=== PATIENT | female | born 1995 | race Hispanic/Latino ===

== ENCOUNTER 2020-12-12 02:41 | Inpatient (IN) | payer OTHER, SELFPAY ==
[2020-12-12] VITALS (178 sets, daily range): BP systolic 91–151; BP diastolic 46–131; PULSE 66–180; RESP 16–20; TEMP 36.1–36.9; O2SAT 98–100; BMI 38.3
[2020-12-12 03:32] LABS: Basophils Percent Auto 0.2 % (0.2-1.2); Eosinophils Percent Auto 0.4 % (0-4.4); Hematocrit 31.8 % (37.0-47.0); Hemoglobin 9.8 g/dL (12.0-15.0); Immature Granulocyte Absolute 0.04 K/mm3 (0.00-0.031); Immature Granulocyte Percent A 0.4 % (0-0.5); Immature Platelet Fraction Pct 23.9 % (0.9-11.2); Lymphocytes Absolute Auto 2.52 K/mm3 (0.9-3.2); Lymphocytes Percent Auto 26.4 % (18.3-44.2); Mean Corpuscular HGB Conc 30.8 g/dl (32-36); Mean Corpuscular Hemoglobin 22.1 pg (26-34); Mean Corpuscular Volume 71.6 fl (80-100); Monocytes Absolute Auto 0.6 K/mm3 (0.1-0.6); Monocytes Percent Auto 6.6 % (2.6-8.5); Neutrophils Absolute Auto 6.3 K/mm3 (1.3-6.7); Platelet Count Result 211 k/mm3 (150-375); Red Blood Count 4.44 M/mm3 (4.2-5.4); Red Cell Distribution Width 15.5 % (11.5-14.5); White Blood Count 9.6 K/mm3 (4.5-10.0)
[2020-12-12] MEDS: LACTATED RINGERS 1,000 ML 125 ML IV CONT ×2 (03:36→04:11)
--- NOTE | 2020-12-12 03:41 | LDADM ---
This patient, Nicole Thompson, was admitted to Labor/Delivery/Recovery 106 on 12/12/20 at 02:41. Plans for labor, pain management and were discussed with patient. Patient/family oriented to hospital policies and general routines including ID bracelet, bed and alarms, visiting hours, pain management, procedures, bathroom and other care routines, personal items, smoking policy, room service/diet and guest tray routines, security routines, and visiting hours. Patient/Family are encouraged to report perceived risks to care and to ask questions if they do not understand what they are told or what they should do. See OBIX for further documentation.
--- NOTE | 2020-12-12 04:12 | WPDANESEPPF ---
Anes - Initial Pre Proc Eval Procedure: labor epidural Date/Time: 12/12/20 04:12 Surgeon: Mitra Archuleta MD Pre Op Diagnosis: labor pain Pre Op Diagnosis: Contractions Patient Data Age: 25 Gender: F Height: 1.55 m Weight: 92 kg Last Vital Signs Temp 36.2 C L 12/12/20 03:30 Pulse 78 12/12/20 04:10 BP 125/63 12/12/20 04:10 Pulse Ox 99 12/12/20 04:09 Allergies Allergy/AdvReac Type Severity Reaction Status Date / Time No Known Allergies Allergy Verified 11/23/20 15:41 Home Medications Medication Instructions Recorded Confirmed Type prenat.vits,elyse,ffl-ynej-zkhra 1 tablet PO HS 11/23/20 11/23/20 History [ #2] Laboratory Tests 12/12/20 12/12/20 03:19 03:19 WBC 9.6 K/mm3 K/mm3 (4.5-10.0) RBC 4.44 M/mm3 M/mm3 (4.2-5.4) Hgb 9.8 g/dL L g/dL (12.0-15.0) Hct 31.8 % L % (37.0-47.0) MCV 71.6 fl L fl (80-100) MCH 22.1 pg L pg (26-34) MCHC 30.8 g/dl L g/dl (32-36) RDW 15.5 % H % (11.5-14.5) Plt Count 211 k/mm3 k/mm3 (150-375) MPV TNP Immature Gran % (Auto) 0.4 % % (0-0.5) Neut % (Auto) 66.0 % % (45.5-73.1) Lymph % (Auto) 26.4 % % (18.3-44.2) [place] % (Auto) 6.6 % % (2.6-8.5) Eos % (Auto) 0.4 % % (0-4.4) Baso % (Auto) 0.2 % % (0.2-1.2) Lymph # (Auto) 2.52 K/mm3 K/mm3 (0.9-3.2) [place] # (Auto) 0.6 K/mm3 K/mm3 (0.1-0.6) Eos # (Auto) 0.0 K/mm3 K/mm3 (0-0.3) Baso # (Auto) 0.0 K/mm3 K/mm3 (0.0-0.1) Abs Immat Gran (auto) 0.04 K/mm3 H K/mm3 (0.00-0.031) Absolute Neuts (auto) 6.3 K/mm3 K/mm3 (1.3-6.7) Absolute Nucleated RBC 0.0 K/mm3 K/mm3 (0.0-0.012) Nucleated RBC % 0.0 % % (0.0-0.2) % Immature Plt Fraction 23.9 % H % (0.9-11.2) RPR Pending Patient hx anesthesia problems: none Family hx anesthesia problems: none PMFSH Family History Family History Father Diabetes mellitus Hypertension Social History Social History Smoking status: Never smoker Second hand tobacco smoke exposure: No Substance use: never Spiritual care concerns: No Anes - Eval Final PreProcedure Day of Procedure 12/12/20 04:12 Patient weight: obese ASA classification: II Anesthesia type and monitoring: regional epidural Informed Consent: The patient's anesthetic plan and its attendant risks and benefits were discussed with the patient/family/POA. Questions were solicited and answers provided to the satisfaction of the patient/family/POA.
[2020-12-12 07:18] LABS: Rapid Plasma Reagin Non-Reactive (NonReactive)
--- NOTE | 2020-12-12 07:43 | WPDOBADMIT ---
Obstetrics - Admit Note Admission Note: 25 y/o here in active labor. record reviewed. No pertinent additions to the history and/or any subsequent changes in the physical findings that are not consistent with the expected course of the were found. Additions to the history and/or subsequent changes in the physical findings follow. None.
--- NOTE | 2020-12-12 11:30 | P.PCNOB_ITS ---
OB - Delivery Note Procedure Delivery date: 12/12/20 Intrapartal events: None Induction method: none Delivery monitor: external FHT, external uterine and internal uterine Route of delivery: [place] Baby Date of : 12/12/20 Time of : 11:13 Weeks of gestation at delivery: 40 gender: Female Weight (pounds): 6 Weight (ounces): 6 presentation: vertex position: Left Occiput Anterior Placenta delivery description: Spontaneous cord vessel description: Nuchal Cord, Loose and Reduced score one minute: 9 score five minutes: 9 Narrative: Delivery per ZLucero CARDENAS. Cord gasses collected and handed off to staff. Mother and baby in stable condition.
[2020-12-12] MEDS: OXYTOCIN 30 UNITS/NS 500 ML 30 UNITS/500 ML BAG 125 UNITS IV CONT (11:49)
[2020-12-12] MEDS: IBUPROFEN 600 MG TABLET PO (13:05)
[2020-12-12] MEDS: WITCH HAZEL 40 PADS 1 PAD TOPICAL (13:06)
[2020-12-12] MEDS: BENZOCAINE 20% AER SPR (*SP) 56 GM CAN 1 SPRAY TOPICAL (13:06)
--- NOTE | 2020-12-12 14:30 | PC.NURSE ---
Patient transferred to post room #279 per wheelchair from labor and delivery. Support person present. Oriented to unit, room, information board, rooming in, admission packet and security measures. Patient verbalizes understanding.
--- NOTE | 2020-12-12 15:20 | PC.NURSE ---
Mother called out for assist with feeding. Consulted with patient, mother reports has fed well first feeding. Reviewed feeding cues, frequencies, duration of feedings, feeding elimination flow sheet, and signs of adequate intake. Demonstrated stimulation techniques to wake for feeding. Assisted with infant to breast. Reviewed positioning/alignment in cross cradle, holding breast in U hold and guided asymmetrical latch on. Mother's nipple tends to draw in when holding breast in U hold. Suggested to roll slightly and to hold breast behind areola. Infant was able to latch within a few attempts. nursed eagerly, with steady draws and frequent swallowing noted. Reviewed signs of a correct latch, effective nursing and suck swallow ratio. Infant was able to maintain latch. Demonstrated how to adjust latch more deeply while feeding. Mother quickly reports she can feel infant is latched more deeply and has minimal tenderness. Suggested to stimulate infant while feeding to keep awake and nursing effectively for increased stimulation and increased intake. Instructed mother to call out for RN assistance if she is unable to latch for feeding or she has discomfort with nursing.
[2020-12-12] MEDS: POLYSACCHARIDE IRON COMPLEX 150 MG CAPSULE PO (17:07)
[2020-12-13] MEDS: IBUPROFEN 600 MG TABLET PO (03:30)
[2020-12-13 03:43] LABS: Hematocrit 30.7 % (37.0-47.0); Hemoglobin 9.3 g/dL (12.0-15.0)
[2020-12-13 08:10] VITALS: BP 117/67; PULSE 70; RESP 18; TEMP 36.3; O2SAT 98
[2020-12-13] MEDS: ACETAMINOPHEN 325 MG TABLET 650 MG PO (08:23)
[2020-12-13] MEDS: DOCUSATE SODIUM 100 MG CAPSULE PO (08:23)
[2020-12-13] MEDS: POLYSACCHARIDE IRON COMPLEX 150 MG CAPSULE PO (08:23)
[2020-12-13] MEDS: MULTIVIT/MIN/PREN/FOL AC/IRON TABLET 1 TAB PO (08:23)
--- NOTE | 2020-12-13 08:28 | P.PNOB_ITS ---
OB - PN: Subj Subjective Date/time seen: 12/13/20 08:28 Patient comments: no complaints baby status: doing well OB - PN: Obj Data Labs CBC & Chem 7: 12/13/20 03:35 Labs: Laboratory Results - last 24 hr 12/13/20 03:35 Hgb 9.3 L Hct 30.7 L OB - PN A/P Plan day: 1 Plan: routine care and discharge home Comments: RTC in 4 weeks Time Spent With Patient Time: Total time spent is greater than 50% in coordination of care (as docu mented) at patient's floor/unit and/or counseling patient: Time with patient: less than 15 minutes Review of Systems Review of Systems: All systems reviewed & are unremarkable except as noted in HPI and below Exam Narrative: Exam Narrative: Fundus firm and vaginal flow controlled. No lower ext redness, warmth, or edema. Negative homans. Const: General: comfortable Chest: Breast/axilla inspection: normal inspection of the breasts Resp: Effort & Inspection: normal respiratory effort Cardio: Rate: regular rate GI: GI Palp: Yes Soft to palpation Psych: Appearance: grossly normal Affect: normal affect Attitude: cooperative Thought content: Yes Normal thought content present Judgement: Good judgement present (Psych)
--- NOTE | 2020-12-13 10:14 | WPDANLDPN2 ---
Anes-Prog Note L&D Date/Time: 12/13/20 10:14 Comfortable throughout: labor and delivery Neuraxial method: epidural Epidural/Spinal procedure site: clean & non-tender Neuro status: Neuro function grossly intact. Cardiovascular status: normal Respiratory status: normal Airway patency: baseline Mental status: baseline Post-Op hydration status: normal Vital Signs: Last Vital Signs Temp 36.3 C L 12/13/20 08:10 Pulse 70 12/13/20 08:10 Resp 18 12/13/20 08:10 BP 117/67 12/13/20 08:10 Pulse Ox 98 12/13/20 08:10 Pain score (VAS): 0 I/O: Intake & Output 12/12/20 12/13/20 12/13/20 23:59 07:59 15:59 Intake Total 500 Balance 500 Post-procedural complaints: none Patient feedback: Patient satisfied with anesthetic care.
[2020-12-16 10:28] VITALS: BP 138/71; PULSE 81; RESP 20; TEMP 37; O2SAT 98
--- NOTE | 2021-01-03 07:45 | P.DS_ITS ---
DS: Admitting Diagnosis Admitting Diagnosis Admitting Diagnosis: Labor DS: Discharge Diagnosis Discharge Diagnosis (1) Vaginal delivery: Code(s): O80 - Encounter for full-term uncomplicated delivery Status: Acute OB - DS: Summary OB Procedures : None OB Procedures Intrapartum: Spontaneous Vag Delivery OB Procedures: : None Time Spent with Patient Time attestation: Total time spent providing and/or coordinating discharge services: Discharge Plan Discharge Attending physician on discharge: Liz Poon Consulting providers: Liz Poon ; Marco Welch Discharging Clinician: Liz Poon Patient Disposition: Home, Self-Care Activity: pelvic rest Diet: as tolerated Discharge Instructions: Education: Mom and Baby Guide and Preeclampsia Handout Given to: Mother Follow-Up: Call your delivering provider's office for an appointment to be seen in: 6 Weeks Mom and baby should come [facility] the [facility] for the follow-up appointment. Appointment Date/Time: December 16, 2020 at 10:00 am What to expect at your follow-up visit: Physical Assessment Call [phone] if you are unable to keep your appointment time. BREAST CARE: * Wear a snug supportive bra. * For engorgement discomfort: Breast Feeding: * Apply warm moist washcloths * Express milk as needed to relieve engorgement * Wear loose clothing * For sore nipples: * Identify correct latch-on * Apply warm moist washcloths before and after nursing * Air dry nipples after nursing * May apply Lansinoh cream to nipples EPISIOTOMY/PERINEAL CARE: * Until bleeding stops, use your yajaira bottle after urinating * Change your pad frequently throughout the day * You may take sitz baths several times a day (fill your bathtub with warm water and soak for 20 minutes.) Do NOT bathe in the water * No tub baths until seen by your physician - You may shower ACTIVITY: * Rest as much as possible. * Do not exercise or lift anything heavier than your baby (such as laundry or other children.) * Avoid stairs or driving as much as possible. * Do not put anything into the vagina. No douching, tampons, or sexual activity until seen by physician. NOTIFY PHYSICIAN IF YOU HAVE ANY QUESTIONS OR IF ANY OF THE FOLLOWING SYMPTOMS OCCUR: * If your perineum becomes red, swollen, or more painful than what you have experienced in the hospital. * If your vaginal bleeding becomes foul smelling. * If your vaginal bleeding becomes more heavy than a period or if your bleeding changes from pink to bright red. However, you may pass an occasional walnut- sized clot once or twice for the first week . * If you experience a sharp, shooting pain in you calves. * If you discover a hard, reddened area on your breast or if you experience flu- like symptoms. DIET: * Eat regular, well-balanced meals. * Drink plenty of fluids daily. If , drink to thirst. Stand Alone Forms: General Discharge Information Follow-up/Referrals: Liz Poon CNM [Certified Nurse [facility]] - Discharge Medications: Continued prenat.vits,elyse,[id number] Tablet 1 tablet PO HS RF: 0 Date of admission: 12/12/20 02:41 Primary Care Provider: MakaylaJennifer Admitting Provider: Mitra Archuleta Attending physician on admission: Mitra Archuleta Condition: Stable
== END 2020-12-13 18:30 | disposition home or self-care (01) | DRG 560 ==
LOC: ANHLDR 03:15 → ANHOB2 14:53
PROVIDERS: Advanced Practice Midwife; Admitting Provider Obstetrics & Gynecology; PCP Registered Nurse; Visit Provider Obstetrics & Gynecology
DX: O69.81X0 Labor and delivery complicated by cord around neck, without compression, not applicable or unspecified (principal); O36.5930 Maternal care for other known or suspected poor fetal growth, third trimester, not applicable or unspecified; O76 Abnormality in fetal heart rate and rhythm complicating labor and delivery; Z3A.40 40 weeks gestation of pregnancy; Z37.0 Single live birth
CPT/HCPCS: 36415; 85014; 85018; 85025; 85055; 86592; 86850; 86900; 86901; A9270; J2590; J2795; J7120

== ENCOUNTER 2022-01-06 18:38 | Emergency (ER) | payer OTHER, SELFPAY ==
--- NOTE | ~2022-01-06 | CT_ITS ---
EXAMINATION: CT abdomen pelvis w con DATE: 01/06/2022 19:32 INDICATION: r/o carole TECHNIQUE: Computed tomography (CT) of the abdomen and pelvis was performed with 100 mL Omnipaque-350 intravenous contrast. The dose-length product was 919.63 mGy-cm. COMPARISON: None FINDINGS: Lower thorax: Unremarkable. Liver: Normal. Biliary/Gallbladder: Gallbladder is normal. No bile duct dilation. No CT evidence of cholelithiasis. Spleen: Normal. Pancreas: No mass or duct dilation. Adrenals:No mass. Kidneys: No mass, stone, or hydronephrosis. GI tract: No small or large bowel dilation. Normal appendix. Mesentery/Peritoneum: No ascites, mass, or free air. Retroperitoneum: No mass. Pelvis: Pelvic organs are within normal limits. Bones/Soft Tissues: Soft tissues and body wall unremarkable. Additional Findings: None. IMPRESSION: No acute abdominopelvic process. Reviewed, dictated and finalized at location K.
[2022-01-06 18:38] VITALS: BP 127/74; PULSE 78; RESP 16; TEMP 36.7; O2SAT 100
[2022-01-06 18:55] LABS: Basophils Percent Auto 0.2 % (0.2-1.2); Eosinophils Percent Auto 0.4 % (0-4.4); Hematocrit 41.2 % (37.0-47.0); Hemoglobin 12.9 g/dL (12.0-15.0); Immature Granulocyte Absolute 0.03 K/mm3 (0.00-0.031); Immature Granulocyte Percent A 0.3 % (0-0.5); Lymphocytes Absolute Auto 2.01 K/mm3 (0.9-3.2); Lymphocytes Percent Auto 19.9 % (18.3-44.2); Mean Corpuscular HGB Conc 31.3 g/dl (32-36); Mean Corpuscular Hemoglobin 25.9 pg (26-34); Mean Corpuscular Volume 82.7 fl (80-100); Mean Platelet Volume 12.2 fl (7.4-10.4); Monocytes Absolute Auto 0.5 K/mm3 (0.1-0.6); Monocytes Percent Auto 4.7 % (2.6-8.5); Neutrophils Absolute Auto 7.5 K/mm3 (1.3-6.7); Neutrophils Percent Auto 74.5 % (45.5-73.1); Platelet Count Result 222 k/mm3 (150-375); Red Blood Count 4.98 M/mm3 (4.2-5.4); Red Cell Distribution Width 14.6 % (11.5-14.5); White Blood Count 10.1 K/mm3 (4.5-10.0)
[2022-01-06 19:04] LABS: Alanine Aminotransferase 16 U/L (4-35); Albumin Level 4.5 g/dL (3.5-5.1); Alkaline Phosphatase 118 U/L (38-126); Anion Gap 8 mmol/L (8-16); Aspartate Amino Transferase 23 U/L (14-36); Bilirubin,Total 1.1 mg/dL (0.2-1.3); Blood Urea Nitrogen 12 mg/dL (7-17); Calcium 8.7 mg/dL (8.4-10.2); Carbon Dioxide 23 mmol/L (22-30); Chloride 107 mmol/L (98-107); Estimated CRCL calculation 113 ml/min; Estimated Glomerular Filt Rate > 60; Glucose 109 mg/dL (65-110); Lipase 138 U/L (23-300); Potassium 3.6 mmol/L (3.4-5.0); Sodium 138 mmol/L (137-145)
--- NOTE | 2022-01-06 19:10 | ED.ABDPAIN ---
HPI - Abdominal Pain General Chief Complaint: Abdominal Pain Stated Complaint: abd pain Time Seen by Provider: 01/06/22 19:06 History of Present Illness HPI narrative: 18-year-old female presents to the emergency room for evaluation of a right upper quadrant pain. Patient states the pain has been present for since before lunchtime around 11:00 today. Patient states the pain is sharp and radiates in through to her back. Patient denies ever having the similar symptoms. Patient denies nausea vomiting, diarrhea, constipation, fever. Patient denies any abdominal surgeries. Related Data Allergies Allergy/AdvReac Type Severity Reaction Status Date / Time No Known Allergies Allergy Verified 01/06/22 18:40 Review of Systems Review of Systems: CONSTITUTIONAL: Denies fever, chills, or sweats. EYES: Denies visual changes, redness, or discharge. ENT: Denies rhinorrhea, congestion, sore throat, or otalgia. CARDIOVASCULAR: Denies chest pain, palpitations, or edema. RESPIRATORY: Denies cough or dyspnea. GASTROINTESTINAL: Reports abdominal pain GENITOURINARY: Denies dysuria or hematuria. SKIN: Denies rash or itching. MUSCULOSKELETAL: Denies back pain, joint pain, or myalgia. NEUROLOGIC: Denies headache, numbness, dizziness, or weakness. PSYCHIATRIC: Denies anxiety or depression. [facility] Family History Family History Father Diabetes mellitus Hypertension Social History Social History Smoking status: Never smoker Second hand tobacco smoke exposure: No Substance use: never Spiritual care concerns: No Exam Narrative: GENERAL: Well-appearing, well-nourished, and in no acute distress. HEAD: Normocephalic, atraumatic. EYES: PERRLA and EOMI. CHEST: Clear to auscultation. No respiratory distress. No wheezes rales or rhonchi HEART: Regular rate and rhythm. No murmur heard. Normal peripheral pulses. ABDOMEN: Soft, right upper quadrant and epigastric tenderness, nondistended, normal active bowel sounds. EXTREMITIES: Normal range of motion. No edema. SKIN: Warm, dry, no rash. NEURO: No focal deficits. Alert and oriented x3. PSYCH: Normal mood and affect. Course Vital Signs Vital signs: Vital Signs Temperature 36.7 C 01/06/22 18:38 Pulse Rate 78 01/06/22 18:38 Respiratory Rate 16 01/06/22 18:38 Blood Pressure 127/74 01/06/22 18:38 Pulse Oximetry 100 01/06/22 18:38 Temperature 36.7 C 01/06/22 18:38 Pulse Rate 78 01/06/22 18:38 Respiratory Rate 16 01/06/22 18:38 Blood Pressure 127/74 01/06/22 18:38 Pulse Oximetry 100 01/06/22 18:38 MDM - Abdominal Pain MDM Narrative Medical decision making narrative: 18-year-old female presents emergency room for evaluation of a cute onset of abdominal pain. Patient states that the pain was constant and sharp in nature. Patient denies any nausea, vomiting, diarrhea or constipation. She also denied fever. CBC and CMP were unremarkable. Urine showed no signs of infection. CT scan showed no acute intra-abdominal abnormality. Differential Diagnosis Differential diagnosis: Likely abdominal pain Lab Data Attestation: I reviewed the patient's lab results. Result diagrams: 01/06/22 18:50 01/06/22 18:50 Labs: Lab Results 01/06/22 01/06/22 01/06/22 Range/Units 18:50 18:50 18:56 WBC 10.1 H (4.5-10.0) K/mm3 RBC 4.98 (4.2-5.4) M/mm3 Hgb 12.9 D (12.0-15.0) g/dL Hct 41.2 (37.0-47.0) % MCV 82.7 (80-100) fl MCH 25.9 L (26-34) pg MCHC 31.3 L (32-36) g/dl RDW 14.6 H (11.5-14.5) % Plt Count 222 (150-375) k/mm3 MPV 12.2 H (7.4-10.4) fl Immature Gran % (Auto) 0.3 (0-0.5) % Neut % (Auto) 74.5 H (45.5-73.1) % Lymph % (Auto) 19.9 (18.3-44.2) % [place] % (Auto) 4.7 (2.6-8.5) % Eos % (Auto) 0.4 (0-4.4) % Baso % (Auto) 0.2 (0.2-1.2) % Lymph # (Auto)
[2022-01-06] MEDS: PANTOPRAZOLE SODIUM IV 40 MG VIAL IV PUSH (19:15)
[2022-01-06] MEDS: BELLADONNA ALK/PHENOB ELIX 10 ML, MAG HYDROX/ALUMINUM HYD/SIMETH 30 ML, LIDOCAINE HCL 2... PO (19:15)
[2022-01-06 19:22] LABS: Add Urine Microscopic? YES; Appearance Urine Clear (Clear); Bilirubin Urine Negative (Negative); Blood Urine Negative (Negative); Color Urine Yellow (Yellow); Glucose Urine UA Negative (Negative); Ketones Urine 1+ mg/dL (Negative); Leukocyte Esterase Ur Negative LEU/UL (Negative); Mucus Urine Few /lpf; Nitrate Urine Negative (Negative); Protein Urine Negative (Negative); RBC Urine 0-2 /hpf (0-2); Specific Grav Ur 1.024 (1.001-1.035); Squamous Epithelial Cell Urine Occasional /hpf (Few); WBC Urine 0-3 /hpf
[2022-01-06 20:22] VITALS: BP 121/68; PULSE 70; RESP 16; O2SAT 98
== END 2022-01-06 20:23 | disposition home or self-care (01) ==
PROVIDERS: Emergency Medicine; Emergency Provider Nurse Practitioner Family; PCP Registered Nurse
DX: K21.9 Gastro-esophageal reflux disease without esophagitis (principal)
CPT/HCPCS: 36415; 74177; 80053; 81001; 81025; 83690; 85025; 96374; 99284; A9270; C9113; Q9967

== ENCOUNTER 2022-06-18 15:07 | Emergency (ER) | payer OTHER, SELFPAY ==
[2022-06-18 15:16] VITALS: BP 125/73; PULSE 90; RESP 15; TEMP 36.3; O2SAT 99
--- NOTE | 2022-06-18 15:58 | ECG_ITS ---
Measurements Intervals [place] Rate: 72 P: 44 AR: 149 QRS: 63 QRSD: 90 T: 35 QT: 378 QTc: 415 Interpretive Statements SINUS RHYTHM POSSIBLE LEFT ATRIAL ENLARGEMENT [-0.1mV P-WAVE IN V1/V2] NO PREVIOUS ECG AVAILABLE FOR COMPARISON Electronically Signed On 06-19-2022 17:13:16 CDT by Rachael Sloan M.D.
--- NOTE | 2022-06-18 16:22 | ED.DIZZY ---
HPI - Dizziness General Chief Complaint: Dizziness Stated Complaint: vertigo Time Seen by Provider: 06/18/22 15:24 Source: patient and RN notes reviewed Mode of arrival: ambulatory Limitations: no limitations History of Present Illness HPI Narrative: This is a 27 year old female who presents for evaluation of intermittent dizziness. She has been having intermittent dizziness since last Saturday. She woke up on Saturday feeling like she was moving . She felt fine during the day but she developed dizziness again when she laid down to sleep. She has continued to have intermittent episodes but she denies dizziness currently. She also had similar episodes in January that lasted for 2 weeks but she did not get evaluated because she did not have insurance. She denies ear pain, headache, vomiting, URI symptoms or tinnitis. She states she has felt that her hearing is worse in her right ear for 2 years. She also states last week she had episode of heart racing and she felt like she was having a panic attack. She denies any symptoms currently. She has appointment with new PCP this week. Related Data Allergies Allergy/AdvReac Type Severity Reaction Status Date / Time No Known Allergies Allergy Verified 01/06/22 18:40 Review of Systems Review of Systems: All systems reviewed & are unremarkable except as noted in HPI and below Constitutional: Constitutional: Denies chills, Denies fatigue and Denies fever(s) Cardiovascular: Cardiovascular: Denies chest pain, Reports rapid heart rate and Denies radiating jaw, neck or arm pain Respiratory: Respiratory: Denies chest congestion, Denies cough and Denies dyspnea Gastrointestinal: Gastrointestinal: Denies abdominal pain, Reports nausea and Denies vomiting Neurologic: Reports vertigo, Denies headache(s), Denies focal weakness and Denies numbness Psychiatric: Psychiatric: Reports anxiety PMFSH Past Medical History Medical History (Updated 06/18/22 @ 18:02 by Jazz Aguilera MD) Patient denies medical problems Family History Family History Father Diabetes mellitus Hypertension Social History Social History Smoking status: Never smoker Second hand tobacco smoke exposure: No Substance use: never Spiritual care concerns: No Exam Narrative: GENERAL: Well-appearing, well-nourished, and in no acute distress. HEAD: Normocephalic, atraumatic EYES: PERRLA and EOMI, conjunctiva clear without discharge EARS: TM's clear bilaterally without erythema or dullness NOSE: Nares clear, no rhinorrhea or epistaxis THROAT:Mucous membranes moist, Oropharynx normal without erythema, exudate, peritonsillar swelling or fluctuance NECK: Supple, without lymphadenopathy or mass RESPIRATORY: No respiratory distress, Airway patent, Respirations non-labored, Clear to auscultation without rales, rhonchi or wheeze HEART: Regular rate and rhythm. No murmur heard. Normal peripheral pulses. ABDOMEN: Soft, nontender, nondistended, normal active bowel sounds. No masses. No rebound or guarding, No organomegaly. EXTREMITIES: No edema, normal strength with full range of motion. SKIN: Warm, dry, normal color without rash NEURO: Alert and oriented x3. CN 2-12 grossly intact. No focal deficits. PSYCH: Normal mood and affect. Neuro: General: no focal motor deficits Cranial nerves: Yes Nystagmus not present Speech: normal speech Gait exam (Neuro): Normal gait present Motor exam (neuro): 5/5 motor strength present throughout Sensory Exam: normal sensation Coordination: [id number] test normal and tandem gait normal Psych: Mental Status: mental status grossly normal Affect: normal affect Attitude: cooperative Course Reevaluation(s) Reevaluation #1: I Discussed with patient labs are unremarkable. She seems to be having episodes of benign positional vertigo. She states she feel
[2022-06-18 16:54] LABS: Basophils Percent Auto 0.3 % (0.2-1.2); Eosinophils Absolute Auto 0.1 K/mm3 (0-0.3); Eosinophils Percent Auto 1.1 % (0-4.4); Hematocrit 42.9 % (37.0-47.0); Hemoglobin 13.6 g/dL (12.0-15.0); Immature Granulocyte Absolute 0.01 K/mm3 (0.00-0.031); Immature Granulocyte Percent A 0.1 % (0-0.5); Lymphocytes Absolute Auto 2.68 K/mm3 (0.9-3.2); Lymphocytes Percent Auto 37.1 % (18.3-44.2); Mean Corpuscular HGB Conc 31.7 g/dl (32-36); Mean Corpuscular Hemoglobin 26.2 pg (26-34); Mean Corpuscular Volume 82.5 fl (80-100); Mean Platelet Volume 12.1 fl (7.4-10.4); Monocytes Absolute Auto 0.6 K/mm3 (0.1-0.6); Monocytes Percent Auto 8.7 % (2.6-8.5); Neutrophils Absolute Auto 3.8 K/mm3 (1.3-6.7); Neutrophils Percent Auto 52.7 % (45.5-73.1); Platelet Count Result 233 k/mm3 (150-375); Red Cell Distribution Width 13.6 % (11.5-14.5); White Blood Count 7.2 K/mm3 (4.5-10.0)
[2022-06-18 17:06] LABS: Alanine Aminotransferase 17 U/L (6-35); Albumin Level 4.5 g/dL (3.5-5.1); Alkaline Phosphatase 112 U/L (38-126); Anion Gap 10 mmol/L (8-16); Aspartate Amino Transferase 22 U/L (14-36); Blood Urea Nitrogen 15 mg/dL (7-17); Calcium 8.5 mg/dL (8.4-10.2); Carbon Dioxide 23 mmol/L (22-30); Chloride 106 mmol/L (98-107); Estimated CRCL calculation 111 ml/min; Estimated Glomerular Filt Rate > 60; Glucose 85 mg/dL (65-110); Potassium 3.8 mmol/L (3.4-5.0); Sodium 139 mmol/L (137-145)
[2022-06-18 17:32] VITALS: BP 115/64; BP 116/74; BP 128/71; PULSE 64; PULSE 72; PULSE 75
== END 2022-06-18 18:19 | disposition home or self-care (01) ==
PROVIDERS: Emergency Provider General Practice; PCP Registered Nurse
DX: R42 Dizziness and giddiness (principal); R94.31 Abnormal electrocardiogram [ECG] [EKG]
CPT/HCPCS: 36415; 80053; 81025; 85025; 93005; 99283

== ENCOUNTER 2023-07-30 18:04 | Emergency (ER) | payer OTHER, SELFPAY ==
--- NOTE | ~2023-07-30 | CT_ITS ---
EXAMINATION: CT cervical spine wo con DATE: 07/30/2023 20:49 INDICATION: paresthesia TECHNIQUE: Computed tomography (CT) of the cervical spine was performed without intravenous contrast. Automated exposure control and iterative reconstruction technique were employed. The dose-length pro duct was 559.26 mGy-cm. COMPARISON: None. FINDINGS: Vertebral Body Alignment: Intact. Craniocervical and atlantoaxial alignment: No significant degenerative change. Alignment intact. Osseous structures/fracture: No evidence of a lytic or blastic process in the visualized spine. No e vidence of acute fracture. Cervical soft tissues: The paraspinal soft tissues planes are maintained. Multiple enlarged upper ant erior cervical chain lymph nodes laterally. Degenerative changes: No significant degenerative changes. No severe central canal or neural foramina l narrowing. IMPRESSION: Bilateral upper anterior cervical chain lymphadenopathy. Otherwise normal CT C-spine findings. Reviewed, dictated and finalized at location K. BRIM CURLER
--- NOTE | ~2023-07-30 | CT_ITS ---
EXAMINATION: CT brain wo con DATE: 07/30/2023 18:47 INDICATION: numbness . TECHNIQUE: Computed tomography (CT) of the head was performed without intravenous contrast. The mA wa s adjusted according to patient size. Iterative reconstruction technique was employed. The dose-lengt h product was 605.33 mGy-cm. COMPARISON: None. FINDINGS: No acute intracranial hemorrhage or extra-axial fluid collection. No hydrocephalus, mass, or herniation. No acute ischemic infarct. Unremarkable dural venous sinus attenuation. No acute osseous abnormality. The aerated spaces are clear. IMPRESSION: No acute intracranial process. Reviewed, dictated and finalized at location K. IMAN HELPER
--- NOTE | ~2023-07-30 | XR_ITS ---
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 RESULT: Lines, tubes, and devices: None. Lungs and pleura: Clear. Cardiomediastinal silhouette: Unremarkable. Other: No acute osseous or upper abdominal finding. IMPRESSION: No acute cardiopulmonary process. Reviewed, dictated and finalized at location K. S CASTING MACHINE OPERATOR
[2023-07-30 18:07] VITALS: BP 126/72; PULSE 82; RESP 18; TEMP 36.2; O2SAT 98
--- NOTE | 2023-07-30 18:22 | ED.GENADULT ---
HPI - General Adult General Chief complaint: Extremity Injury, Upper Stated complaint: Left arm numbness and tingling since last night Time Seen by Provider: 07/30/23 20:11 History of Present Illness HPI narrative: Nicole Thompson is a 28 y/o female who presents with reports of having numbness to her left arm from her shoulder to her wrist that started yesterday at around 2100, denies any known injury or trauma. She also reports of feeling off balance/ dizziness when she got up this morning lasted about 20 seconds. She reports that the dizziness happened again at around 1500. Denies Chest pain / shortness of breath/ Reports headache that started this morning that improved with advil and then returned around 1630. 5/5 strength to bilateral upper extremities Pupils equal and reactive EOM intact Related Data Allergies Allergy/AdvReac Type Severity Reaction Status Date / Time No Known Allergies Allergy Verified 01/06/22 18:40 [facility] Past Medical History Medical History (Updated 07/31/23 @ 00:01 by Arnold Mueller) Patient denies medical problems Family History Family History Father Diabetes mellitus Hypertension Social History Social History Smoking status: Never smoker Second hand tobacco smoke exposure: No Substance use: never Spiritual care concerns: No Course Vital Signs Vital signs: Vital Signs Temperature 36.2 C L 07/30/23 18:07 Pulse Rate 82 07/30/23 18:07 Respiratory Rate 18 07/30/23 18:07 Blood Pressure 126/72 07/30/23 18:07 Pulse Oximetry 98 07/30/23 18:07 Temperature 36.2 C L 07/30/23 18:07 Pulse Rate 70 07/30/23 22:32 Respiratory Rate 18 07/30/23 22:32 Blood Pressure 116/65 07/30/23 22:32 Pulse Oximetry 100 07/30/23 22:32 Medical Decision Making Vital Signs Vital Signs: Vital Signs Temperature 36.2 C L 07/30/23 18:07 Pulse Rate 82 07/30/23 18:07 Respiratory Rate 18 07/30/23 18:07 Blood Pressure 126/72 07/30/23 18:07 Pulse Oximetry 98 07/30/23 18:07 Temperature 36.2 C L 07/30/23 18:07 Pulse Rate 70 07/30/23 22:32 Respiratory Rate 18 07/30/23 22:32 Blood Pressure 116/65 07/30/23 22:32 Pulse Oximetry 100 07/30/23 22:32 Lab Data 07/30/23 19:45 07/30/23 19:45 Labs: Lab Results 07/30/23 07/30/23 Range/Units 19:45 20:19 WBC 8.0 (4.5-10.0) K/mm3 RBC 5.11 (4.2-5.4) M/mm3 Hgb 13.6 (12.0-15.0) g/dL Hct 42.9 (37.0-47.0) % MCV 84.0 (80-100) fl MCH 26.6 (26-34) pg MCHC 31.7 L (32-36) g/dl RDW 12.8 (11.5-14.5) % Plt Count 231 (150-375) k/mm3 MPV 11.7 H (7.4-10.4) fl Immature Gran % (Auto) 0.2 (0-0.5) % Neut % (Auto) 53.6 (45.5-73.1) % Lymph % (Auto) 35.5 (18.3-44.2) % [place] % (Auto) 8.7 H (2.6-8.5) % Eos % (Auto) 1.6 (0-4.4) % Baso % (Auto) 0.4 (0.2-1.2) % Lymph # (Auto) 2.85 (0.9-3.2) K/mm3 [place] # (Auto) 0.7 H (0.1-0.6) K/mm3 Eos # (Auto) 0.1 (0-0.3) K/mm3 Baso # (Auto) 0.0 (0.0-0.1) K/mm3 Abs Immat Gran (auto) 0.02 (0.00-0.031) K/mm3 Absolute Neuts (auto) 4.3 (1.3-6.7) K/mm3 Absolute Nucleated RBC 0.0 (0.0-0.012) K/mm3 Nucleated RBC % 0.0 (0.0-0.2) % Sodium 142 (137-145) mmol/L Potassium 3.7 (3.4-5.0) mmol/L Chloride 105 (98-107) mmol/L Carbon Dioxide 27 (22-30) mmol/L Anion Gap 10 (8-16) mmol/L BUN 13 (7-17) mg/dL Creatinine 0.60 L (0.7-1.0) mg/dL Estim Creat Clear Calc 112 ml/min Estimated GFR > 60 (59 - ) Glucose 86 (65-110) mg/dL Calcium 9.0 (8.4-10.2) mg/dL Total Bilirubin 0.9 (0.2-1.3) mg/dL AST 27 (14-36) U/L ALT 25 (6-35) U/L Alkaline Phosphatase 93 (38-126) U/L Total Protein 8.0 (6.3-8.2) g/dL Albumin 4.3 (3.5-5.1) g/dL Urine Color Yellow (Yellow) Urine Appearance Turbid H
--- NOTE | 2023-07-30 18:28 | ECG_ITS ---
Measurements Intervals [place] Rate: 69 P: 24 CO: 156 QRS: 37 QRSD: 85 T: 21 QT: 373 QTc: 400 Interpretive Statements SINUS RHYTHM NORMAL ECG COMPARED TO ECG 06/18/2022 16:13:59 NO SIGNIFICANT CHANGES Electronically Signed On 07-31-2023 6:04:37 [employer] by Krystian Lozano D.O.
[2023-07-30 19:53] LABS: Basophils Percent Auto 0.4 % (0.2-1.2); Eosinophils Absolute Auto 0.1 K/mm3 (0-0.3); Eosinophils Percent Auto 1.6 % (0-4.4); Hematocrit 42.9 % (37.0-47.0); Hemoglobin 13.6 g/dL (12.0-15.0); Immature Granulocyte Absolute 0.02 K/mm3 (0.00-0.031); Immature Granulocyte Percent A 0.2 % (0-0.5); Lymphocytes Absolute Auto 2.85 K/mm3 (0.9-3.2); Lymphocytes Percent Auto 35.5 % (18.3-44.2); Mean Corpuscular HGB Conc 31.7 g/dl (32-36); Mean Corpuscular Hemoglobin 26.6 pg (26-34); Mean Platelet Volume 11.7 fl (7.4-10.4); Monocytes Absolute Auto 0.7 K/mm3 (0.1-0.6); Monocytes Percent Auto 8.7 % (2.6-8.5); Neutrophils Absolute Auto 4.3 K/mm3 (1.3-6.7); Neutrophils Percent Auto 53.6 % (45.5-73.1); Platelet Count Result 231 k/mm3 (150-375); Red Blood Count 5.11 M/mm3 (4.2-5.4); Red Cell Distribution Width 12.8 % (11.5-14.5)
[2023-07-30 20:03] LABS: Alanine Aminotransferase 25 U/L (6-35); Albumin Level 4.3 g/dL (3.5-5.1); Alkaline Phosphatase 93 U/L (38-126); Anion Gap 10 mmol/L (8-16); Aspartate Amino Transferase 27 U/L (14-36); Bilirubin,Total 0.9 mg/dL (0.2-1.3); Blood Urea Nitrogen 13 mg/dL (7-17); Carbon Dioxide 27 mmol/L (22-30); Chloride 105 mmol/L (98-107); Estimated CRCL calculation 112 ml/min; Estimated Glomerular Filt Rate > 60; Glucose 86 mg/dL (65-110); Potassium 3.7 mmol/L (3.4-5.0); Sodium 142 mmol/L (137-145)
[2023-07-30 20:38] LABS: Appearance Urine Turbid (Clear); Bacteria Urine 2+ /hpf; Bilirubin Urine Negative (Negative); Blood Urine Negative (Negative); Color Urine Yellow (Yellow); Glucose Urine UA Negative (Negative); Ketones Urine Negative (Negative); Leukocyte Esterase Ur 2+ LEU/UL (Negative); Nitrate Urine Negative (Negative); Non Pathogenic Casts 0-2; Protein Urine Negative (Negative); RBC Urine 0-2 /hpf (0-2); Squamous Epithelial Cell Urine Moderate /hpf (Few); WBC Urine 21-50 /hpf; pH Urine 6.5 (5.0-9.0)
[2023-07-30 20:40] LABS: Add Urine Microscopic? YES
--- NOTE | 2023-07-30 21:57 | ED.GENADULT ---
[facility] - General Adult General Chief complaint: Extremity Injury, Upper Stated complaint: Left arm numbness and tingling since last night Time Seen by Provider: 07/30/23 20:11 History of Present Illness [facility] narrative: Patient presents to emergency department paresthesias of her left arm. Symptoms started in the anterior left chest and radiated down into her left hand. They were located in the posterior area of her arm more consistent with ulnar etiology. Denies weakness or numbness. She has history of neck musculoskeletal issues and is seen by a chiropractor. Related Data Allergies Allergy/AdvReac Type Severity Reaction Status Date / Time No Known Allergies Allergy Verified 01/06/22 18:40 Review of Systems Review of Systems: Review of systems negative except what is documented in the [facility] Past Medical History Medical History (Updated 07/30/23 @ 22:02 by Avelina Balderas MD) Patient denies medical problems Family History Family History Father Diabetes mellitus Hypertension Social History Social History Smoking status: Never smoker Second hand tobacco smoke exposure: No Substance use: never Spiritual care concerns: No Exam Narrative: GENERAL: Well-appearing, well-nourished, and in no acute distress. HEAD: Normocephalic, atraumatic. EYES: PERRLA and EOMI. ENT: Nares clear, no rhinorrhea or epistaxis. Mucous membranes moist. NECK: Supple. CHEST: Clear to auscultation. No respiratory distress. HEART: Regular rate and rhythm. ABDOMEN: Soft, nontender, nondistended. EXTREMITIES: Normal range of motion. No edema. SKIN: Warm, dry, no rash. NEURO: No focal deficits. Alert and oriented x3. PSYCH: Normal mood and affect. Course Course Emergency Course: CBC and CMP ordered and grossly unremarkable. She has a urinary tract infection that is likely not causing the paresthesias of her left arm however will treat. CT head unremarkable. CT C-spine shows no degenerative changes or large bulging discs. Will DC with symptomatic control at home and referral to primary care provider to ensure resolution of paresthesias Vital Signs Vital signs: Vital Signs Temperature 36.2 C L 07/30/23 18:07 Pulse Rate 82 07/30/23 18:07 Respiratory Rate 18 07/30/23 18:07 Blood Pressure 126/72 07/30/23 18:07 Pulse Oximetry 98 07/30/23 18:07 Temperature 36.2 C L 07/30/23 18:07 Pulse Rate 82 07/30/23 18:07 Respiratory Rate 18 07/30/23 18:07 Blood Pressure 126/72 07/30/23 18:07 Pulse Oximetry 98 07/30/23 18:07 Medical Decision Making Vital Signs Vital Signs: Vital Signs Temperature 36.2 C L 07/30/23 18:07 Pulse Rate 82 07/30/23 18:07 Respiratory Rate 18 07/30/23 18:07 Blood Pressure 126/72 07/30/23 18:07 Pulse Oximetry 98 07/30/23 18:07 Temperature 36.2 C L 07/30/23 18:07 Pulse Rate 82 07/30/23 18:07 Respiratory Rate 18 07/30/23 18:07 Blood Pressure 126/72 07/30/23 18:07 Pulse Oximetry 98 07/30/23 18:07 Lab Data 07/30/23 19:45 07/30/23 19:45 Labs: Lab Results 07/30/23 07/30/23 Range/Units 19:45 20:19 WBC 8.0 (4.5-10.0) K/mm3 RBC 5.11 (4.2-5.4) M/mm3 Hgb 13.6 (12.0-15.0) g/dL Hct 42.9 (37.0-47.0) % MCV 84.0 (80-100) fl MCH 26.6 (26-34) pg MCHC 31.7 L (32-36) g/dl RDW 12.8 (11.5-14.5) % Plt Count 231 (150-375) k/mm3 MPV 11.7 H (7.4-10.4) fl Immature Gran % (Auto) 0.2 (0-0.5) % Neut % (Auto) 53.6 (45.5-73.1) % Lymph % (Auto) 35.5 (18.3-44.2) % [place] % (Auto) 8.7 H (2.6-8.5) % Eos % (Auto) 1.6 (0-4.4) % Baso % (Auto) 0.4 (0.2-1.2) % Lymph # (Auto) 2.85 (0.9-3.2) K/mm3 [place] # (Auto) 0.7 H (0.1-0.6) K/mm3 Eos # (Auto) 0.1 (0-0.3) K/mm3 Baso # (Auto) 0.0 (0.0-0.1) K/mm3 Abs Immat Gran (auto) 0
[2023-07-30] MEDS: LIDOCAINE 5% PATCH 1 PATCH TRANSDERM (22:28)
[2023-07-30] MEDS: CEPHALEXIN 500 MG CAPSULE PO (22:28)
[2023-07-30] MEDS: IBUPROFEN 600 MG TABLET PO (22:28)
[2023-07-30 22:32] VITALS: BP 116/65; PULSE 70; RESP 18; O2SAT 100
== END 2023-07-30 22:33 | disposition home or self-care (01) ==
PROVIDERS: Nurse Practitioner Family; Emergency Provider Emergency Medicine; PCP Family Medicine
DX: R20.2 Paresthesia of skin (principal); N39.0 Urinary tract infection, site not specified
CPT/HCPCS: 36415; 70450; 71046; 72125; 80053; 81001; 81025; 85025; 87086; 93005; 99284; A9270

== ENCOUNTER 2025-05-31 01:52 | Emergency (ER) | payer OTHER, SELFPAY ==
--- NOTE | ~2025-05-31 | CT_ITS ---
Nicole Thompson EXAMINATION: CT abdomen pelvis w con COMPARISON: None HISTORY: RUQ Pain TECHNIQUE: Axial images were obtained through the abdomen, pelvis post administration of IV contrast. Oral contrast was also administered. Coronal reconstruction images were obtained from the axial views. CT scan performed using dose optimization techniques including the following automated exposure control; adjustment of mA and/or kV; use of iterative reconstruction technique. Automatic exposure control was used to reduce radiation dose. Permanent radiation dose record is archived to PACS. FINDINGS: CT abdomen: LUNG BASES: The lung bases are clear. The visualized portions of the heart and pericardium are unremarkable. LIVER: Portal vein patent. No intrahepatic biliary duct dilatation. SPLEEN: Unremarkable. KIDNEYS: Right Kidney: Unremarkable. No calculi. No hydronephrosis. Left Kidney: Unremarkable. No calculi. No hydronephrosis ADRENAL GLANDS: Unremarkable. PANCREAS: Unremarkable. GALLBLADDER/BILIARY: There is cholelithiasis with mild distention of the gallbladder and hyperemia of the gallbladder mucosa. STOMACH AND ESOPHAGUS: Visualized stomach and esophagus within normal limits. BOWEL/MESENTERY: Moderate fecal content. Mild diverticulosis. No colitis or diverticulitis. Appendix normal. Mesentery normal. Small bowel normal. ADENOPATHY/RETROPERITONEUM: No lymphadenopathy. AORTA/VASCULATURE: Normal caliber aorta. FREE FLUID OR FREE AIR: No free fluid.. CT pelvis: SOLID ORGANS/REPRODUCTIVE: IUD within the uterine cavity. No adnexal mass. BLADDER: Within normal limits. OSSEOUS STRUCTURES: No acute osseous abnormality.No suspicious lesions. OVERLYING SOFT TISSUES: Unremarkable. IMPRESSION: Findings are concerning for cholelithiasis with early cholecystitis. Ultrasound is suggested. Reviewed, dictated and finalized at location A.
[2025-05-31 01:53] VITALS: BP 131/80; PULSE 72; RESP 18; TEMP 36.7; O2SAT 100
[2025-05-31 02:00] VITALS: BP 134/85; PULSE 63; RESP 18; TEMP 36.7; O2SAT 98
[2025-05-31] MEDS: SODIUM CHLORIDE 0.9% IV 1,000 ML 999 ML IV CONT (02:19)
--- NOTE | 2025-05-31 02:21 | ED_ITS ---
HPI - Abdominal Pain General Chief Complaint: Abdominal Pain Stated Complaint: RUQ abd pain Time Seen by Provider: 05/31/25 01:56 History of Present Illness HPI narrative: Patient is a 28-year-old female who presents emergency department this morning complaining of right upper quadrant abdominal pain which started at 7:00 p.m. last night. Patient states that the pain persisted and worsened around midnight and states that she currently still has the pain, rates it a 9/10. States that she has had similar symptoms maybe 2 years ago and was told was due to severe grade. Never been told she has any issues with her gallbladder or history of gallstones. Admits to nausea but denies any vomiting episodes. Admits that the pain does radiate to her back. Denies any urinary symptoms including dysuria or hematuria. No additional symptoms or concerns at this time. Related Data Allergies Allergy/AdvReac Type Severity Reaction Status Date / Time No Known Allergies Allergy Verified 05/31/25 01:57 Review of Systems 2 Review of Systems: All systems are reviewed and are negative unless stated otherwise in the HPI. [facility] Past Medical History Medical History Patient denies medical problems Family History Family History Father Diabetes mellitus Hypertension Social History Social History Smoking status: Never smoker Second hand tobacco smoke exposure: No Substance use: never Spiritual care concerns: No Exam 2 Narrative: General: Alert, awake, afebrile, in no acute distress. HEENT: PERRL, no rhinorrhea, no post nasal drip, oropharynx clear. Neck: Trachea midline, no JVD, no lymphadenopathy. Cardiovascular: Regular rate and rhythm, no murmurs, rubs or gallops, no peripheral edema. Respiratory: Clear to auscultation bilaterally, no tachypnea, no wheezing, no rhonchi, no rubs, no respiratory distress. Abdomen: Soft, mild tenderness to palpation over the right upper quadrant, nondistended, no rebound, no guarding, no peritoneal signs. Musculoskeletal: No joint swelling or deformity, normal muscle tone. Skin: No rashes or petechia, no signs of infection. Psychiatric: Alert and oriented, normal behavior and judgment for situation. Neurological: Alert and oriented to person, place, and time. Follows all commands. No focal deficits, speech is clear and fluent. Course Vital Signs Vital signs: Vital Signs Temperature 98.0 F 05/31/25 01:53 Pulse Rate 72 05/31/25 01:53 Respiratory Rate 18 05/31/25 01:53 Blood Pressure 131/80 05/31/25 01:53 Pulse Oximetry 100 05/31/25 01:53 Oxygen Delivery Room Air 05/31/25 01:53 Temperature 98.0 F 05/31/25 02:00 Pulse Rate 63 05/31/25 02:00 Respiratory Rate 18 05/31/25 02:00 Blood Pressure 134/85 05/31/25 02:00 Pulse Oximetry 98 05/31/25 02:00 Oxygen Delivery Room Air 05/31/25 02:00 MDM - Abdominal Pain MDM Narrative Medical decision making narrative: The patient was evaluated by myself in the emergency department. History is obtained from patient who is an independent historian and physical exam was performed. External medical records were reviewed at this time. IV was established and pertinent tests were ordered. Patient was administered 1 L IV fluid bolus with normal saline, 4 mg IV morphine for pain and 4 mg IV Zofran for nausea. Laboratory results obtained revealing no acute process. Imaging studies obtained included CT abdomen pelvis with IV contrast which was independently interpreted by me revealing cholelithiasis with gallbladder wall thickening consistent with acute cholecystitis in the correct clinical setting, which is pending final radiology interpretation. At this time, case was discussed with the on-call general surgeon Dr. Askew at 0323, given the patient's normal vital signs, blood work and current complain of no pain, he agrees the patient is a candidate for outpatient follow-up. Patient will call his office this morning to set up a follow-up appointment. She will be started on ciprofloxacin to take until her appointment this week. Differential diagnosis considerations include biliary colic/cholecystitis, peptic ulcer disease, gastritis, esophagitis/GERD. Comorbidities impacting this visit include none. I have evaluated and discussed social determinants of health with the patient that could potentially impact subsequent diagnosis and treatment plans. On repeat assessment of the patient, reevaluation revealed that the patient is doing well and is in no acute distress. Patient symptoms have improved since she arrived to our emergency department. Repeat vital signs were all reviewed and noted to be stable. Differential diagnosis and treatment plan were discussed with the patient at bedside. Patient agrees with discussion and after shared medical decision making agrees with discharge. All questions were answered to the patient's satisfaction. Patient will follow up with Dr. Askew in 3 days. A script for ciprofloxacin was sent to patient's pharmacy to take as prescribed. Patient was provided with strict return precautions and instructed to return to the emergency department if any new or worsening symptoms develop. The patient was discharged in stable condition. Lab Data 05/31/25 02:08 05/31/25 02:08 Labs: Lab Results 05/31/25 05/31/25 05/31/25 Range/Units 02:08 02:12 02:19 WBC 7.9 (4.5-10.0) K/mm3 RBC 4.84 (4.2-5.4) M/mm3 Hgb 13.3 (12.0-15.0) g/dL Hct 41.5 (37.0-47.0) % MCV 85.7 (80-100) fl MCH 27.5 (26-34) pg MCHC 32.0 (32-36) g/dl RDW 13.0 (11.5-14.5) % Plt Count 231 (150-375) k/mm3 MPV 11.3 H (7.4-10.4) fl Immature Gran % (Auto) 0.1 (0-0.5) % Neut % (Auto) 48.6 (45.5-73.1) % Lymph % (Auto) 40.5 (18.3-44.2) % [place] % (Auto) 8.5 (2.6-8.5) % Eos % (Auto) 1.9 (0-4.4) % Baso % (Auto) 0.4 (0.2-1.2) % Lymph # (Auto) 3.18 (0.9-3.2) K/mm3 [place] # (Auto) 0.7 H (0.1-0.6) K/mm3 Eos # (Auto) 0.2 (0-0.3) K/mm3 Baso # (Auto) 0.0 (0.0-0.1) K/mm3 Abs Immat Gran (auto) 0.01 (0.00-0.031) K/mm3 Absolute Neuts (auto) 3.8 (1.3-6.7) K/mm3 Absolute Nucleated RBC 0.000 (0.0-0.012) K/mm3 Nucleated RBC % 0.0 (0.0-0.2) % Sodium 138 (137-145) mmol/L Potassium 4.2 (3.4-5.0) mmol/L Chloride 105 (98-107) mmol/L Carbon Dioxide 25 (22-30) mmol/L Anion Gap 8 (4-12) mmol/L BUN 18 H (7-17) mg/dL Creatinine 0.65 L (0.7-1.0) mg/dL Estim Creat Clear Calc 98 ml/min Estimated GFR > 60 (59 - ) Glucose 104 (65-110) mg/dL Calcium 8.8 (8.4-10.2) mg/dL Magnesium 1.9 (1.6-2.3) mg/dL Total Bilirubin 1.1 (0.2-1.3) mg/dL AST 31 (14-36) U/L ALT 26 (6-35) U/L Alkaline Phosphatase 116 (38-126) U/L Total Protein 8.2 (6.3-8.2) g/dL Albumin 4.4 (3.5-5.1) g/dL Lipase 198 (23-300) U/L Urine Color Yellow (Yellow) Urine Appearance Clear (Clear) Urine pH 5.0 (5.0-9.0) Ur Specific [place] 1.023 (1.001-1.035) Urine Protein Negative (Negative) mg/dL Urine Glucose (UA) Negative (Negative) mg/dL Urine Ketones Negative (Negative) mg/dL Ur Blood (Man) Negative (Negative) Urine Nitrate Negative (Negative) Urine Bilirubin Negative (Negative) Urine Urobilinogen 0.2 (<2.0) mg/dL Leukocyte Esterase Rfl 1+ H (Negative) ELISA/UL Urine RBC 0-2 (0-2) /hpf Urine WBC 6-10 H (0-3) /hpf Ur Squamous Epith Cells Occasional (Few) /hpf Urine Bacteria None seen /hpf Urine Casts 0-2 POC Urine HCG, Qual Negative (Negative) Discharge Plan Discharge Clinical Impression: Acute cholecystitis Patient Disposition: Home Condition: Improved Instructions: Antibiotic Form, Cholecystitis (ED) Additional Instructions: Please follow-up with Dr. Askew with General surgery this week. Your instructed to call his office this morning to set up a follow-up appointment. Take the prescribed antibiotic as instructed and return to the ED if any new or worsening symptoms develop. Patient Language: [place] Prescriptions: New ciprofloxacin HCl 500 mg tablet 500 mg PO Q12H 7 Days Qty: 14 0RF No Action meclizine 25 mg tablet 25 mg PO BID PRN (Reason: dizziness) Qty: 10 0RF cephalexin 500 mg capsule 500 mg PO Q8H Qty: 20 0RF pantoprazole [Protonix] 40 mg tablet,delayed release (DR/EC) 40 mg PO HS Qty: 30 0RF Follow-up/Referrals: Calli Askew MD [Physician, General Surgery] - 3 Days PHYSICIAN,AUDIO VISUAL ENGINEER [Primary Care Provider, Internal Medicine] Time of Disposition: 03:31
[2025-05-31 02:22] LABS: BEDSIDEPREGUCG Negative (Negative)
[2025-05-31] MEDS: MORPHINE SULFATE (*CRX) 4 MG/ML INJ IV PUSH (02:26)
[2025-05-31] MEDS: ONDANSETRON INJ 4 MG/2 ML VIAL IV PUSH (02:27)
[2025-05-31 02:28] LABS: Hematocrit 41.5 % (37.0-47.0); Hemoglobin 13.3 g/dL (12.0-15.0); Immature Granulocyte Percent A 0.1 % (0-0.5); Lymphocytes Absolute Auto 3.18 K/mm3 (0.9-3.2); Mean Corpuscular HGB Conc 32.0 g/dl (32-36); Mean Corpuscular Hemoglobin 27.5 pg (26-34); Mean Corpuscular Volume 85.7 fl (80-100); Nucleated Red Blood Cells Absolute Auto 0.000 K/mm3 (0.0-0.012); Nucleated Red Blood Cells Perc 0.0 % (0.0-0.2); Platelet Count Result 231 k/mm3 (150-375); Red Blood Count 4.84 M/mm3 (4.2-5.4); White Blood Count 7.9 K/mm3 (4.5-10.0)
[2025-05-31 02:30] LABS: Alanine Aminotransferase 26 U/L (6-35); Albumin Level 4.4 g/dL (3.5-5.1); Alkaline Phosphatase 116 U/L (38-126); Anion Gap 8 mmol/L (4-12); Aspartate Amino Transferase 31 U/L (14-36); Bilirubin,Total 1.1 mg/dL (0.2-1.3); Blood Urea Nitrogen 18 mg/dL (7-17); Calcium 8.8 mg/dL (8.4-10.2); Carbon Dioxide 25 mmol/L (22-30); Chloride 105 mmol/L (98-107); Estimated CRCL calculation 98 ml/min; Estimated Glomerular Filt Rate > 60; Glucose 104 mg/dL (65-110); Lipase 198 U/L (23-300); Magnesium 1.9 mg/dL (1.6-2.3); Potassium 4.2 mmol/L (3.4-5.0); Sodium 138 mmol/L (137-145); Total Protein 8.2 g/dL (6.3-8.2)
[2025-05-31 02:35] LABS: Add Urine Microscopic? YES; Appearance Urine Clear (Clear); Glucose Urine UA Negative (Negative); Leukocyte Esterase Ur 1+ LEU/UL (Negative); Nitrate Urine Negative (Negative); Non Pathogenic Casts 0-2; Specific Grav Ur 1.023 (1.001-1.035)
[2025-05-31] MEDS: MORPHINE SULFATE (*CRX) 2 MG/ML INJ IV PUSH (03:36)
[2025-05-31 03:42] VITALS: BP 113/76; PULSE 68; RESP 18; O2SAT 99
== END 2025-05-31 03:42 | disposition home or self-care (01) ==
PROVIDERS: Emergency Provider Emergency Medicine
DX: K81.0 Acute cholecystitis (principal)
CPT/HCPCS: 36415; 74177; 80053; 81001; 81025; 83690; 83735; 85025; 87086; 96361; 96374; 96375; 96376; 99284; J2270; J2405; J7030; Q9967

== ENCOUNTER 2025-06-17 09:25 | Outpatient (CLI) | payer OTHER, SELFPAY ==
--- OUTSIDE RECORDS SUMMARY | 2025-06-17 09:58 | XMS_ITS | Clinical Summary ---
Author Organization [facility] Address [address] [place] [address] Care Team Providers Care Nailing Machine Operator Automatic Name Role Phone Unavailable Primary Care Provider Unavailabl e Source Comments [facility],non-owned Affiliates and Associated Physician Practices is amultiple site organization consisting of ambulatory clinics and hospital sitesin [place], [place], [place] and [place]. This disclosure is being madepursuant to the Care Everywhere program and may not contain all information available regarding this patient. Last updated 18.[facility] Active Problems Problem Noted Date Diagnosed Date SGA (small for gestational age) 08/01/2020 Overview (08/01/2020): EFW 8% on outside scan. 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 Respiratory Rate - - Oxygen Saturation - - Inhaled Oxygen Concentration - - Weight - - Height - - Body Mass Index - - Plan of Treatment Health Maintenance Due Date Last Done Comments HIV SCREENING 2008 HEPATITIS C SCREENING 04/18/2011 DTAP/TDAP/TD VACCINES (1 - Tdap) 2012 HEPATITIS B VACCINE (1 of 3 - 19+ 3-dose series) 2012 HPV VACCINE (1 - 3-dose SCDM series) 2020 DEPRESSION SCREENING 09/16/2024 COVID-19 VACCINE (2023-2 5 season) 2025 INFLUENZA VACCINE (#1) 2025 ZOSTER VACCINE (1 of 2) 2043 HIB VACCINE Aged Out No longer eligi ble based on patient's age to complete this topic MENINGOCOCCAL (Group B) VACC INE SHARED DECISION-MAKING Aged Out No longer eligibl e based on patient's age to complete this topic MENINGOCOCCAL GROUPS A/C/Y/W VACCINE Aged Out No longer eligible b ased on patient's age to complete this topic PNEUMOCOCCAL VACCINE Aged Out No long er eligible based on patient's age to complete this topic Insurance MEDICAID - [place] Member Subscriber Plan / Payer (Ef fective for All Dates) Name:Jeannine Schmidt Relation to Subscriber:Self Name:Jeannine Schmidt Payer ID:Not on file Group ID:Not on file Type:Medicaid [place] Address: [place] [id number] MEDICAID - [place] * Guarantor: JEANNINE SCHMIDT Account Type Relation to Patient Date of Phone Billing Address Personal/Family 1995 [id number] [place] [address]
[2025-06-17 10:20] LABS: Amylase 93 U/L (30-110)
== END 2025-06-17 09:26 | disposition home or self-care (01) ==
LOC: ANHSURGERY 09:29
PROVIDERS: Visit Provider Surgery
DX: K80.00 Calculus of gallbladder with acute cholecystitis without obstruction (principal)
CPT/HCPCS: 36415; 82150; 86850; 86900; 86901

== ENCOUNTER 2025-06-24 01:29 | Day surgery (SDC) | payer OTHER, SELFPAY ==
[2025-06-17 08:38] VITALS: BMI 32.3
--- NOTE | 2025-06-17 08:45 | PC.NURSE ---
[facility] has started construction of its new state of the art ER which will open Spring 2026. With this, we anticipate parking may be a challenge for some our surgical patients and families. Parking spaces are limited but are available for all Surgical, obstetrics, and ER patients sharing this lot. If you arrive and find you are having a hard time finding a parking space, please note that we understand the challenges, please drive around the hospital and park near Hospital Entrance 1. When you enter this entrance, you can ask a volunteer to direct or take you back to the surgical waiting area to check in. We appreciate everyone?s understanding of these expected challenges while we build for your future. Report to the Outpatient Waiting Room, entrance under the green pavilion located off [address], at time _0730__ on date __06/24/25_. Planned Procedure Time: _30__.? Time changes happen often and if your time is changed the preop area will call you the afternoon before. - You and your visitor will be asked to self-screen and do not enter if you have any COVID symptoms. Please call surgeon if you need to reschedule. - A mask is optional within the hospital at this time. Patients may have clear liquids (water, carbonated beverages, clear teas, apple juice) until 3 hours prior to surgery with a maximum of 20 ounces. - No food from midnight until time of surgery and no smoking, or chewing tobacco (or any form of nicotine). No chewing gum, candy or mints. - Infants may have breast milk until 4 hours before surgery, formula 6 hours prior to surgery. - Children will be allowed to drink immediately following surgery.? If applicable, please bring a bottle or sippy cup to assist with drinking. Juice, water, soda, and popsicles are readily available.? For infants on formula, please bring formula the day of surgery.? Pacifiers are allowed. Take only the following medications with a SIP of water on the morning of surgery: ___NONE DO NOT STOP ANY OF YOUR OTHER PRESCRIPTION MEDICATIONS PRIOR TO SURGERY EXCEPT THE FOLLOWING Hold all vitamins and supplements for 3 days per anesthesiologist. Medications to discontinue per physician PT HAS STOPPED TRULICITY 06/07/25 Date to take last dose Please no make-up, nail burkinan, hairspray, perfume, deodorant, or body powder the day of surgery.? No jewelry (including any body piercings) or valuables the day of surgery, leave them at home.? Please take a shower or bath the night before, or the morning of, surgery with HIBICLENS antibacterial soap.? Wear comfortable, loose fitting clothing.? Children are encouraged to wear pajamas. - Jewelry must be removed prior to entering the operating room.? Rings and piercings that are not removed may be cut off. - The hospital will not accept responsibility for valuables.? - Please leave all valuables, including medications, at home the day of surgery. If you are going home after surgery, a licensed box truck driver must drive you home.? - NO public transportation without another adult if you receive anesthesia. - We recommend that an adult stay with you for 24 hours following discharge. - We also recommend that you do not drive, make important decision, drink alcoholic beverages, or take any drugs that were not prescribed by your health care provider for at least 24 hours after your discharge time. For Pediatric surgeries, we recommend two adults accompany the child home. Follow any additional instructions given to you from your surgeon. Telephone instructions given to _PATIENT__and asked if any additional questions and then verbalized understanding. Patient advised to call surgeon office or pre surgery nurse liaison [phone] if any additional questions.
[2025-06-24] VITALS (8 sets, daily range): BP systolic 97–109; BP diastolic 46–65; PULSE 60–77; RESP 12–16; TEMP 36.3–36.8; O2SAT 99–100
--- NOTE | 2025-06-24 07:21 | WPDHPUPDATE1 ---
History and Physical Update Update Date/Time: 06/24/25 07:21 History and Physical has been reviewed, including an updated exam of the patient. There are NO changes in the patient's condition. Risks, benefits, and alternatives have been discussed and questions answered. Patient agrees to proceed with procedure.
[2025-06-24] MEDS: KETOROLAC 15 MG/ML VIAL (*BKC) IV PUSH (09:20)
[2025-06-24] MEDS: ACETAMINOPHEN 500 MG TABLET 1000 MG PO (09:20)
[2025-06-24] MEDS: INDOCYANINE GREEN 25 MG VIAL WITH DILUENT 3.75 MG IV PUSH (09:20)
[2025-06-24] MEDS: LACTATED RINGERS 1,000 ML 30 ML IV CONT ×2 (09:20→13:05)
[2025-06-24 10:10] LABS: BEDSIDEPREGUCG Negative (Negative)
--- NOTE | 2025-06-24 10:18 | P.PNAN_ITS ---
Anes - Initial Pre Proc Eval Procedure: Operation Date: 06/24/25 10:30 Proposed Procedures p Robotic Cholecystectomy - Calli Askew MD Date/Time: 06/24/25 10:18 Surgeon: Calli Askew MD Pre Op Diagnosis: Acute Calculus Cholecystitis Patient Data Age: 30 Gender: F Height: 1.52 m Weight: 76.9 kg Last Vital Signs Temp 36.8 C 06/24/25 10:05 Pulse 66 06/24/25 10:05 Resp 16 06/24/25 10:05 BP 108/48 L 06/24/25 10:05 Pulse Ox 100 06/24/25 10:05 O2 Del Method Room Air 06/24/25 10:05 Allergies Allergy/AdvReac Type Severity Reaction Status Date / Time No Known Allergies Allergy Verified 06/24/25 10:12 Home Medications ?Medication ?Instructions ?Recorded ?Confirmed ?Type dulaglutide 0.75 mg/0.5 mL 0.75 mg subcut WEEKLY 06/0306/17/25 History subcutaneous pen injector (Trulicity) Laboratory Tests 06/24/25 10:05 POC Urine HCG, Qual Negative (Negative) Patient hx anesthesia problems: none Family hx anesthesia problems: none Results Review: All pre-operative results and documents have been reviewed as part of the pre-operative evaluation. [facility] Past Medical History Medical History (Updated 06/23/25 @ 14:03 by Marco Welch DO) Depression Anxiety Asthma Patient denies medical problems Family History Family History Father Diabetes mellitus Hypertension Social History Social History (Updated 06/03/25 @ 09:08 by Uzma Youssef CMA) Smoking status: Never smoker Second hand tobacco smoke exposure: No Alcohol intake: never Substance use: never Do You Feel Safe in your Home?: No Lack of Food: Never True Current Housing: I Have Housing Concerned About Future Housing: No Difficulty Paying Gas/Electric Bills: No Difficulty Paying for Meds: No Currently Unemployed: No Education: High School Diploma/GED Difficulty w/ Childcare or Family Care: YES Living arrangements: with family Spiritual care concerns: No Anes - Eval Final PreProcedure Day of Procedure 06/24/25 10:18 Patient weight: obese Heart: regular rate and rhythm Lungs: clear to auscultation Airway: Mallampati scale class II Neurological: alert and oriented Last oral intake: >/= 8 hours ASA classification: III Emergent: no Anesthetic plan: proceed Anesthesia type and monitoring: general ETT and standard monitoring Results Review: All pre-operative results and documents have been reviewed as part of the pre- operative evaluation. Informed Consent: The patient's anesthetic plan and its attendant risks and benefits were discussed with the patient/family/POA. Questions were solicited and answers provided to the satisfaction of the patient/family/POA.
[2025-06-24] MEDS: ceFAZolin 2 GM in SODIUM CHLORIDE 0.9% IV 50 ML 100 ML IVPB (11:25)
[2025-06-24] MEDS: BUPIVACAINE/EPINEPHRINE 0.5% 30 ML VIAL INFILTRATE (12:47)
--- NOTE | 2025-06-24 12:47 | S_PTH ---
PATIENT: Nicole Thompson LOC: [facility] U#:[id number] AGE/SX: 30/F ROOM: RE06/24/[address]: Calli Askew MD : 1995 BED: DIS: 06/24/2025 SPEC #: [id number] RECD: 06/24/25 13:38 STATUS: CHARLIE REQ #: [id number] JORGE LUIS: 06/24/25 12:[address]: Calli sAkew DEPT: [facility] Surgical RECD BY: Caitlyn Murry ENTERED: 06/24/25 13:38 SP TYPE: Surgical OTHR DR: Laurita Zelaya, AUDIO VIDEO MECHANIC Tissues: A - Gallbladder Procedures: Hematoxylin and Eosin Stain Gross and Microscopic Level 3
--- NOTE | 2025-06-24 13:14 | W.PM.PROC2 ---
Procedure Note - Detailed Date of Procedure 06/24/25 Pre-op Diagnosis Acute cholecystitis, cholelithiasis Post-op Diagnosis Same Procedure Performed Robotic assisted cholecystectomy Surgeon Calli Askew MD Anesthesia General Indications 30-year-old female presenting after visit to the emergency department for acute cholecystitis, cholelithiasis. Workup and exam was confirmatory of diagnosis. Findings Cholecystitis, cholelithiasis Description of Procedure The patient was taken to the operating room and placed in the supine position. After adequate induction of general anesthesia, the patient was prepped and draped in the normal sterile fashion. A time-out was then done to verify the patient's identity, as well as the procedure being performed. I began by making a 8 mm incision in the periumbilical region. A Veress needle was then placed in the peritoneal cavity and CO2 gas was insufflated. After adequate pneumoperitoneum was achieved, the Veress needle was removed and a 8 mm Optiview trocar was placed under direct visualization. Once into the abdominal cavity, the introducer was removed and the laparoscope was placed through this trocar site. Under direct visualization, I placed a further 8 mm port in the left mid abdomen and 2 additional 8 mm ports in the right mid abdomen. The robot was then docked to these ports sites. I then went to the console. The gallbladder was then identified and noted to be moderately inflamed, distended, and full of gallstones. I was able to place a grasper at the dome of the gallbladder and this was retracted up and over the liver. A 2nd retractor was used to grasp the infundibulum and retracted laterally. This allowed visualization and dissection of the triangle of Calot. There were some omental adhesions to the gallbladder and these were taken down with the cautery. I then began dissection around the triangle Calot. I first identified the cystic duct, I was able to visualize the entirety of the duct from its proximal insertion into the gallbladder to its distal junction with the common hepatic/common bile duct junction. I then used the firefly visualization at this point to confirm the anatomy. The proximal cystic duct was then further skeletonized, clipped, and transected. Next I visualized the cystic artery. Again the structure was skeletonized, clipped, and transected. I then again used firefly to confirm anatomy and no aberrant anatomy was noted. I then used the Bovie cautery to take down the peritoneal attachments of the gallbladder off the liver bed. Once the gallbladder specimen was completely detached, an Endo pouch was placed through the left 8 mm port site and the gallbladder specimen was placed in the endo-pouch and subsequently removed. Of note, I made a cholecystostomy and decompressed the gallbladder to facilitate removal. There was a large stone in the gallbladder and the incision had to be extended to allow extraction. I then re-examined the right upper quadrant. Hemostasis was noted in the liver bed and the clips were noted to be in good position on both the duct and the artery. No other pathology was seen in the right upper quadrant. All instruments were then removed and the robot was undocked. The fascia of the left lower port was closed under direct visualization with an 0 Vicryl suture. All port sites were then closed with 4-0 Monocryl subcuticular suture. Dermabond was placed on each was wound. The patient tolerated the procedure well and was extubated in the operating room postop. The patient will now be transferred to the recovery room in stable condition. Estimated Blood Loss 5 Drains No Packing No Pathology Yes Complications No immediate complications Condition Stable Disposition PACU [facility] Billing Surgery - Charge Forward: Surgery Billing
[2025-06-24] MEDS: oxyCODONE HCL (*CRX) 5 MG TAB IR PO (14:38)
--- NOTE | 2025-06-24 14:55 | SUR.PHASEII ---
PATIENT C/O'ING OF MID/UPPER CHEST PRESSURE, FEELING LIKE IT'S HARD TO TAKE A DEEP BREATH. VITAL SIGNS STABLE AND SATS 100%. DR. VILLALOBOS NOTIFIED AND IS HERE TO SEE PATIENT.
--- NOTE | 2025-06-24 15:00 | SUR.PHASEII ---
NO NEW ORDERS FROM DR. VILLALOBOS. WILL CONTINUE TO MONITOR PATIENT.
--- NOTE | 2025-06-24 15:27 | SUR.PHASEII ---
PATIENT STATES SHE FEELS BETTER IN HER THROAT/CHEST. NO SOB, DIAPHORESIS. ABLE TO WALK EASILY WITHOUT INCREASED SYMPTOMS.
== END 2025-06-24 15:36 | disposition home or self-care (01) ==
PROVIDERS: Visit Provider Surgery
PROC: 0FT44ZZ Resection of Gallbladder, Percutaneous Endoscopic Approach (ICD-10-PCS; CPT 47562; principal; 2025-06-24 10:30)
DX: K80.00 Calculus of gallbladder with acute cholecystitis without obstruction (principal); K66.0 Peritoneal adhesions (postprocedural) (postinfection); K21.9 Gastro-esophageal reflux disease without esophagitis; J45.909 Unspecified asthma, uncomplicated; F32.A Depression, unspecified; F41.9 Anxiety disorder, unspecified; E66.9 Obesity, unspecified; Z68.33 Body mass index [BMI] 33.0-33.9, adult; Z79.85 Long-term (current) use of injectable non-insulin antidiabetic drugs
CPT/HCPCS: 47562; S2900; 88304; J0690; A9270; J1100; J1885; J2250; J2405; J2704; J3010; J7120